=== PATIENT | female | born 1960 | race African-American/Black ===

== ENCOUNTER 2017-06-22 15:00 | Outpatient (RCR) | payer OTHER ==
[~2017-06-22 15:00] MED LIST: ALLEGRA60 MG PO; CALCIUM + D 6001 TA1 PO; DYAZIDE 25 MG-31 CAP PO; LIPITOR 10MG10 MG PO; OMEGA 3 120 MG-1 CAP PO; TRIAMTERENE/HCT1 TAB PO; VITAMIN E1000 U/CAP PO; [UNRECOGNIZED DRUG - CODE] PO
== END 2017-08-02 | disposition still patient (30) ==
LOC: MKS.ESL.PT
DX: R60.0 Localized edema (principal); R26.89 Other abnormalities of gait and mobility; R53.1 Weakness; R23.9 Unspecified skin changes; M25.551 Pain in right hip; M54.5 Low back pain